=== PATIENT | female | born 1990 | race Hispanic/Latino ===

== ENCOUNTER 2018-05-15 07:10 | Emergency (ER) | payer SELFPAY ==
[2018-05-15 08:16] VITALS: BP 122/92
--- NOTE | 2018-05-15 09:16 | Emergency Department Report ---
Chief Complaint: Medical Clearance Stated Complaint: GET TESTED Time Seen by Provider: 05/15/18 09:13 - HPI History of Present Illness: Patient is a 27-year-old female who states she had unprotected sex one to be checked for HIV. Patient also wants her implantable control as her left upper extremity removed. Patient has no other symptoms at this time. Patient denies any vaginal discharge and abdominal pain dysuria or fevers chills nausea vomiting or diarrhea at this time. - ROS Review of Systems: All other systems are reviewed and are negative - Exam Vital Signs: Vital Signs 05/15/18 07:49 Temperature 98.2 F Pulse Rate 91 H Respiratory 16 Rate Blood Pressure 122/92 O2 Sat by Pulse 100 Oximetry Physical Exam: Brief focused physical exam shows patient was alert and oriented 3 with no abdominal tenderness on palpation. MSE screening note: Focused history and physical exam performed. Due to findings the following was ordered: ED Medical Decision Making - Medical Decision Making Patient is not medical emergency at this time. Patient will be referred to the health department for HIV and STD screening be discharged. He has opted to not $150 hospital co-pay. ED Disposition for MSE Clinical Impression: Concern about STD in female without diagnosis Disposition: Z-07 MED SCREENING EXAM-LEFT Is pt being admited?: No Does the pt Need Aspirin: No Condition: Stable Referrals: PRIMARY CARE, [Primary Care Provider] - 3-5 Days
== END 2018-05-15 09:15 | disposition left against medical advice (07) ==
LOC: ED 07:10
DX: Z53.21 Procedure and treatment not carried out due to patient leaving prior to being seen by health care provider (principal)